=== PATIENT | female | born 1990 | race Hispanic/Latino ===

== ENCOUNTER 2021-03-06 00:32 | Observation (INO) | payer BC, SELFPAY ==
[2021-03-06 03:22] VITALS: BMI 21.5
--- NOTE | 2021-03-06 03:22 | OBADM ---
This patient, Cesilia Morales, admitted to the OB room Labor/Delivery/Recovery 106 for observation. Patient/family oriented to hospital policies and general routines including ID bracelet, bed and alarms, visiting hours, pain management, procedures, bathroom and other care routines, personal items, smoking policy, room service/diet, and visiting hours. Patient/Family are encouraged to report perceived risks to care and to ask questions if they do not understand what they are told or what they should do.
--- NOTE | 2021-03-06 07:43 | PM.OBTRLD ---
OB - Triage/Final Diagnosis Visit Information Reason for evaluation: threatened labor Comments/Additional reasons for admission: I have assessed the risk for this patient, Cesilia Morales, and determined that she would benefit from observation care.
== END 2021-03-06 03:35 | disposition home or self-care (01) ==
PROVIDERS: Admitting Provider Obstetrics & Gynecology; Visit Provider Obstetrics & Gynecology
DX: O47.9 False labor, unspecified (principal); Z3A.00 Weeks of gestation of pregnancy not specified
CPT/HCPCS: G0378; G0379

== ENCOUNTER 2021-03-07 00:30 | Inpatient (IN) | payer BC, SELFPAY ==
[2021-03-07] VITALS (208 sets, daily range): BP systolic 68–132; BP diastolic 30–111; PULSE 58–189; RESP 16; TEMP 36.6–37.7; O2SAT 78–100
[2021-03-07 03:03] LABS: Basophils Percent Auto 0.1 % (0.2-1.2); Eosinophils Percent Auto 0.3 % (0-4.4); Hematocrit 37.1 % (37.0-47.0); Immature Granulocyte Absolute 0.03 K/mm3 (0.00-0.031); Immature Granulocyte Percent A 0.4 % (0-0.5); Lymphocytes Absolute Auto 2.26 K/mm3 (0.9-3.2); Mean Corpuscular HGB Conc 32.3 g/dl (32-36); Mean Corpuscular Hemoglobin 30.1 pg (26-34); Mean Platelet Volume 11.4 fl (7.4-10.4); Monocytes Absolute Auto 0.5 K/mm3 (0.1-0.6); Monocytes Percent Auto 6.8 % (2.6-8.5); Neutrophils Absolute Auto 4.9 K/mm3 (1.3-6.7); Neutrophils Percent Auto 63.4 % (45.5-73.1); Platelet Count Result 187 k/mm3 (150-375); Red Blood Count 3.99 M/mm3 (4.2-5.4); Red Cell Distribution Width 16.6 % (11.5-14.5); White Blood Count 7.8 K/mm3 (4.5-10.0)
[2021-03-07] MEDS: LACTATED RINGERS 1,000 ML 125 ML IV CONT ×3 (03:07→19:53)
[2021-03-07] MEDS: AMPICILLIN 2 GM/NS 100 ML 2 GM/100 ML BAG IVPB (03:07)
--- NOTE | 2021-03-07 04:31 | LDADM ---
This patient, Cesilia Morales, was admitted to Labor/Delivery/Recovery 107 on 03/07/21 at 00:30. Plans for labor, pain management and were discussed with patient. Patient/family oriented to hospital policies and general routines including ID bracelet, bed and alarms, visiting hours, pain management, procedures, bathroom and other care routines, personal items, smoking policy, room service/diet and guest tray routines, infant security routines, and visiting hours. Patient/Family are encouraged to report perceived risks to care and to ask questions if they do not understand what they are told or what they should do. See OBIX for further documentation.
--- NOTE | 2021-03-07 04:34 | P.PNAN_ITS ---
Anes - Eval Pre Procedure Procedure: Labor epidural Date/Time: 03/07/21 04:34 Surgeon: velasquez larson Preop Diagnosis: ABD PAIN WITH CONTRACTIONS Pre Op Diagnosis: Labor Patient Data Age: 31 Gender: F Height: Weight: Last Vital Signs Pulse 78 03/07/21 04:00 BP 104/66 03/07/21 04:00 Allergies Allergy/AdvReac Type Severity Reaction Status Date / Time No Known Allergies Allergy Verified 03/06/21 03:29 Home Medications Medication Instructions Recorded Confirmed Type ferrous sulfate mg 03/06/21 History levothyroxine 03/06/21 History Laboratory Tests 03/07/21 03/07/21 02:56 02:56 WBC 7.8 K/mm3 K/mm3 (4.5-10.0) RBC 3.99 M/mm3 L M/mm3 (4.2-5.4) Hgb 12.0 g/dL g/dL (12.0-15.0) Hct 37.1 % % (37.0-47.0) MCV 93.0 fl fl (80-100) MCH 30.1 pg pg (26-34) MCHC 32.3 g/dl g/dl (32-36) RDW 16.6 % H % (11.5-14.5) Plt Count 187 k/mm3 k/mm3 (150-375) MPV 11.4 fl H fl (7.4-10.4) Immature Gran % (Auto) 0.4 % % (0-0.5) Neut % (Auto) 63.4 % % (45.5-73.1) Lymph % (Auto) 29.0 % % (18.3-44.2) [place] % (Auto) 6.8 % % (2.6-8.5) Eos % (Auto) 0.3 % % (0-4.4) Baso % (Auto) 0.1 % L % (0.2-1.2) Lymph # (Auto) 2.26 K/mm3 K/mm3 (0.9-3.2) [place] # (Auto) 0.5 K/mm3 K/mm3 (0.1-0.6) Eos # (Auto) 0.0 K/mm3 K/mm3 (0-0.3) Baso # (Auto) 0.0 K/mm3 K/mm3 (0.0-0.1) Abs Immat Gran (auto) 0.03 K/mm3 K/mm3 (0.00-0.031) Absolute Neuts (auto) 4.9 K/mm3 K/mm3 (1.3-6.7) Absolute Nucleated RBC 0.0 K/mm3 K/mm3 (0.0-0.012) Nucleated RBC % 0.0 % % (0.0-0.2) RPR Pending Patient hx anesthesia problems: none Family hx anesthesia problems: none PMFSH Past Medical History Medical History Diabetes in Exam Day of Procedure 03/07/21 04:34 Patient weight: normal Airway: Mallampati scale class II Neurological: alert and oriented
--- NOTE | 2021-03-07 05:05 | PM.IMHP ---
H&P: HPI History of Present Illness Date/Time: 03/07/21 05:05 frederic is a 31-year-old 1 para 0 whose last menstrual period was 06/04/2020, EDC is 03/11/2021, presents at 39 weeks gestation in active labor. She is positive for group B strep. She is hypothyroid and controlled on 20/5 micro g of levothyroxine. Early ultrasound confirms dates. She has also been anemic and on iron replacement Chief Complaint: term in active labor with positive group B strep Review of Systems Review of Systems: All systems reviewed & are unremarkable except as noted in HPI and below PMFSH Past Medical History Medical History Diabetes in Meds Home Medications and Allergies Home Medications Medication Instructions Recorded Confirmed Type ferrous sulfate mg 03/06/21 History levothyroxine 03/06/21 History Allergies Allergy/AdvReac Type Severity Reaction Status Date / Time No Known Allergies Allergy Verified 03/06/21 03:29 Vital Signs Vital Signs - 24 hr 03/07/21 03:00 03/07/21 03:15 03/07/21 03:31 Pulse Rate 75 87 67 Blood Pressure 121/77 103/61 112/70 Pulse Oximetry 03/07/21 03:45 03/07/21 04:00 03/07/21 04:43 Pulse Rate 68 78 Blood Pressure 108/76 104/66 Pulse Oximetry 98 03/07/21 04:45 03/07/21 04:48 03/07/21 04:51 Pulse Rate 111 H 118 H 114 H Blood Pressure 126/66 112/75 115/76 Pulse Oximetry 100 03/07/21 04:53 03/07/21 04:54 03/07/21 04:57 Pulse Rate 76 86 Blood Pressure 104/67 119/66 Pulse Oximetry 100 03/07/21 04:59 03/07/21 05:00 03/07/21 05:03 Pulse Rate 75 106 H Blood Pressure 103/66 101/66 Pulse Oximetry 100 100 Exam Const: General: no acute distress Eyes: General: appearance normal, both eyes and all related structures Neck: Neck: supple and no JVD Thyroid: thyroid normal Resp: Effort & Inspection: normal respiratory effort Auscultation: clear to auscultation bilaterally Cardio: Rate: regular rate Rhythm: regular rhythm GI: Inspection: non-distended GI Palp: Yes Soft to palpation, No Tenderness to palpation present (GI) and No Guarding due to palpation present (GI) Auscultation: normal bowel sounds : External Female Exam: normal external appearance Speculum Exam - Vagina: normal appearance of the vagina Speculum Exam - Cervix: Cervical os closed ( cervix 3.5cm by RN exam. Contractions regular. FHTs reassuring) Skin: General skin exam: no rashes or lesions noted Extrem: General: normal to inspection and no edema Psych: Mental Status: mental status grossly normal Affect: normal affect H&P: Results Labs Labs: Short CBC 03/07/21 Range/Units 02:56 WBC 7.8 (4.5-10.0) K/mm3 Hgb 12.0 (12.0-15.0) g/dL Hct 37.1 (37.0-47.0) % Plt Count 187 (150-375) k/mm3 Assessment and Plan Additional Plan impression: Term in active labor Plan: Spontaneous vaginal delivery is expected. She has an epidural candidate
--- NOTE | 2021-03-07 05:12 | WPDOBADMIT ---
Obstetrics - Admit Note Admission Note: record reviewed. No pertinent additions to the history and/or any subsequent changes in the physical findings that are not consistent with the expected course of the were found. Additions to the history and/or subsequent changes in the physical findings follow. None. cx 4/100/-2 arom mec stained fhts ok epidural working
[2021-03-07] MEDS: OXYTOCIN 30 UNITS/NS 500 ML 30 UNITS/500 ML BAG 6 UNITS IV CONT (07:06)
[2021-03-07] MEDS: AMPICILLIN 1 GM/NS 50 ML 1 GM/50 ML BAG IVPB ×3 (07:06→15:29)
--- NOTE | 2021-03-07 11:14 | P.PNOB_ITS ---
OB - PN: Subj Subjective Date/time seen: 03/07/21 11:14 cx 4.5 by rn exam fhts ok/iupc in OB - PN: Obj Data Labs CBC & Chem 7: 03/07/21 02:56 Labs: Laboratory Results - last 24 hr 03/07/21 03/07/21 02:56 02:56 WBC 7.8 RBC 3.99 L Hgb 12.0 Hct 37.1 MCV 93.0 MCH 30.1 MCHC 32.3 RDW 16.6 H Plt Count 187 MPV 11.4 H Immature Gran % (Auto) 0.4 Neut % (Auto) 63.4 Lymph % (Auto) 29.0 [place] % (Auto) 6.8 Eos % (Auto) 0.3 Baso % (Auto) 0.1 L Lymph # (Auto) 2.26 [place] # (Auto) 0.5 Eos # (Auto) 0.0 Baso # (Auto) 0.0 Abs Immat Gran (auto) 0.03 Absolute Neuts (auto) 4.9 Absolute Nucleated RBC 0.0 Nucleated RBC % 0.0 Blood Type A Positive Antibody Screen Negative OB - PN A/P Time Spent With Patient Time: Total time spent is greater than 50% in coordination of care (as documented) at patient's floor/unit and/or counseling patient:
[2021-03-07 12:01] LABS: Rapid Plasma Reagin Non-Reactive (NonReactive)
--- NOTE | 2021-03-07 16:10 | P.PNOB_ITS ---
OB - PN: Subj Subjective Date/time seen: 03/07/21 16:10 cx 6 fhts ok pt sleeping cont pit OB - PN: Obj Data Labs CBC & Chem 7: 03/07/21 02:56 Labs: Laboratory Results - last 24 hr 03/07/21 03/07/21 03/07/21 02:56 02:56 02:56 WBC 7.8 RBC 3.99 L Hgb 12.0 Hct 37.1 MCV 93.0 MCH 30.1 MCHC 32.3 RDW 16.6 H Plt Count 187 MPV 11.4 H Immature Gran % (Auto) 0.4 Neut % (Auto) 63.4 Lymph % (Auto) 29.0 [place] % (Auto) 6.8 Eos % (Auto) 0.3 Baso % (Auto) 0.1 L Lymph # (Auto) 2.26 [place] # (Auto) 0.5 Eos # (Auto) 0.0 Baso # (Auto) 0.0 Abs Immat Gran (auto) 0.03 Absolute Neuts (auto) 4.9 Absolute Nucleated RBC 0.0 Nucleated RBC % 0.0 RPR Non-reactive Blood Type A Positive Antibody Screen Negative OB - PN A/P Time Spent With Patient Time: Total time spent is greater than 50% in coordination of care (as documented) at patient's floor/unit and/or counseling patient:
--- NOTE | 2021-03-07 18:57 | P.PNOB_ITS ---
OB - PN: Subj Subjective Date/time seen: 03/07/21 18:57 cx complete fhts ok OB - PN: Obj Data Labs CBC & Chem 7: 03/07/21 02:56 Labs: Laboratory Results - last 24 hr 03/07/21 03/07/21 03/07/21 02:56 02:56 02:56 WBC 7.8 RBC 3.99 L Hgb 12.0 Hct 37.1 MCV 93.0 MCH 30.1 MCHC 32.3 RDW 16.6 H Plt Count 187 MPV 11.4 H Immature Gran % (Auto) 0.4 Neut % (Auto) 63.4 Lymph % (Auto) 29.0 [place] % (Auto) 6.8 Eos % (Auto) 0.3 Baso % (Auto) 0.1 L Lymph # (Auto) 2.26 [place] # (Auto) 0.5 Eos # (Auto) 0.0 Baso # (Auto) 0.0 Abs Immat Gran (auto) 0.03 Absolute Neuts (auto) 4.9 Absolute Nucleated RBC 0.0 Nucleated RBC % 0.0 RPR Non-reactive Blood Type A Positive Antibody Screen Negative OB - PN A/P Time Spent With Patient Time: Total time spent is greater than 50% in coordination of care (as documented) at patient's floor/unit and/or counseling patient:
[2021-03-07] MEDS: ONDANSETRON INJ 4 MG/2 ML VIAL IV PUSH (19:48)
--- NOTE | 2021-03-07 21:07 | PM.OBPRVD ---
OB - Delivery Note Procedure Delivery date: 03/07/21 Intrapartal events: None Induction method: none Delivery monitor: external FHT Route of delivery: Episiotomy description: None Laceration Description: Perineal - 2nd Degree Delivery repair: vicryl Specimen: No Quantitative Blood Loss (ml): 258 Anesthesia type: Epidural Disposition: floor Baby Date of : 03/07/21 Time of : 20:50 Weeks of gestation at delivery: 39 gender: Male presentation: vertex position: Left Occiput Anterior Placenta delivery description: Spontaneous cord vessel description: 3 Vessels and Nuchal Cord
[2021-03-07] MEDS: OXYTOCIN 30 UNITS/NS 500 ML 30 UNITS/500 ML BAG 125 UNITS IV CONT (21:22)
[2021-03-07] MEDS: ACETAMINOPHEN 325 MG TABLET 650 MG PO (21:58)
--- NOTE | 2021-03-07 22:59 | PC.NURSE ---
All medications passed after 1800 on 03/07/21 passed by Jason Martins RN.
[2021-03-07] MEDS: WITCH HAZEL 40 PADS 1 PAD TOPICAL (23:14)
[2021-03-07] MEDS: BENZOCAINE 20% AER SPR (*SP) 56 GM CAN 1 SPRAY TOPICAL (23:14)
--- NOTE | 2021-03-07 23:44 | OBPPTRN ---
Patient transferred to post room #277 via wheelchair. Oriented to unit, room, information board, rooming in, admission packet and security measures. Patient verbalizes understanding. Call light within reach
[2021-03-08] MEDS: IBUPROFEN 600 MG TABLET PO ×3 (02:48→19:56)
--- NOTE | 2021-03-08 02:53 | PC.NURSE ---
Patient assisted to the bathroom, with standby assistance. She sat on the toliet for about 20 minutes and was unable to void. She states she can feel that it is right there ready to come out but she can not go. Marcia care performed, pain medication given and told her we will try again in about an hour to void.
[2021-03-08 04:20] VITALS: BP 86/52; PULSE 89; RESP 16; TEMP 37.2
--- NOTE | 2021-03-08 04:20 | PC.NURSE ---
Patient up to the bathroom to void, she sat on the toilet for 20 minutes and went about 75cc's. She states she feels like she needs to void more but is unable to at this time. She would like to get in the shower and try to void. She got in the shower and she stated I was able to void a little more than when I was on the toilet . I told her to let me know if she voids anymore, a hat is in the toilet. Bladder does not feel distended, uterus is firm and midline at umbilicus.
[2021-03-08 05:41] LABS: Hematocrit 27.1 % (37.0-47.0); Hemoglobin 8.9 g/dL (12.0-15.0)
--- NOTE | 2021-03-08 07:39 | WPDANLDPN2 ---
Anes-Prog Note L&D Date/Time: 03/08/21 07:39 Comfortable throughout: labor and delivery Neuraxial method: epidural Epidural/Spinal procedure site: clean & non-tender Neuro status: Neuro function grossly intact. Cardiovascular status: normal Respiratory status: normal Airway patency: baseline Mental status: baseline Post-Op hydration status: normal Vital Signs: Last Vital Signs Temp 37.2 C 03/08/21 04:20 Pulse 89 03/08/21 04:20 Resp 16 03/08/21 04:20 BP 86/52 L 03/08/21 04:20 Pulse Ox 100 03/07/21 23:45 Pain score (VAS): 2 I/O: Intake & Output 03/07/21 03/07/21 03/08/21 15:59 23:59 07:59 Intake Total 1100 1500 Output Total 1098 Balance 1100 402 Post-procedural complaints: none Patient feedback: Patient satisfied with anesthetic care.
--- NOTE | 2021-03-08 07:41 | PM.OBPNVD ---
OB - PN: Subj Subjective Date/time seen: 03/08/21 07:41 Patient comments: no complaints and pain well controlled baby status: doing well and nursing well OB - PN: Obj Data Labs CBC & Chem 7: 03/08/21 04:07 Labs: Laboratory Results - last 24 hr 03/07/21 03/08/21 02:56 04:07 Hgb 8.9 L D Hct 27.1 L RPR Non-reactive OB - PN A/P Plan day: 1 Plan: routine care Time Spent With Patient Time: Total time spent is greater than 50% in coordination of care (as documented) at patient's floor/unit and/or counseling patient: Time with patient: less than 15 minutes Review of Systems Review of Systems: All systems reviewed & are unremarkable except as noted in HPI and below Exam Const: General: no acute distress Eyes: General: appearance normal, both eyes and all related structures Neck: Neck: supple and no JVD Thyroid: thyroid normal Resp: Effort & Inspection: normal respiratory effort Auscultation: clear to auscultation bilaterally Cardio: Rate: regular rate Rhythm: regular rhythm GI: Inspection: non-distended GI Palp: Yes Soft to palpation, No Tenderness to palpation present (GI) and No Guarding due to palpation present (GI) Auscultation: normal bowel sounds : General: Yes bladder normal to palpation External Female Exam: normal external appearance Speculum Exam - Vagina: normal vaginal discharge and No vaginal bleeding Speculum Exam - Cervix: nontender Bimanual exam- vagina & uterus: bladder normal to palpation and No Cervical tenderness present OB/external & speculum: No vaginal bleeding Skin: General skin exam: no rashes or lesions noted Extrem: General: normal to inspection and no edema Psych: Mental Status: mental status grossly normal Affect: normal affect
[2021-03-08 08:05] VITALS: BP 101/60; PULSE 89; RESP 18; TEMP 36.7; O2SAT 100
[2021-03-08] MEDS: DOCUSATE SODIUM 100 MG CAPSULE PO (11:19)
[2021-03-08 11:59] VITALS: BP 97/63; PULSE 81; RESP 17; TEMP 36.8; O2SAT 96
[2021-03-08 16:40] VITALS: BP 86/48; PULSE 84; RESP 12; TEMP 36.2; O2SAT 100
[2021-03-08 19:36] VITALS: BP 95/60; PULSE 95; RESP 14; TEMP 36.8; O2SAT 99
[2021-03-08] MEDS: ACETAMINOPHEN 325 MG TABLET 650 MG PO (19:55)
[2021-03-09] MEDS: IBUPROFEN 600 MG TABLET PO ×2 (05:48→14:10)
[2021-03-09] MEDS: ACETAMINOPHEN 325 MG TABLET 650 MG PO (05:48)
--- NOTE | 2021-03-09 06:49 | PM.OBPNVD ---
OB - PN: Subj Subjective Date/time seen: 03/09/21 06:49 Patient comments: no complaints and pain well controlled baby status: doing well and nursing well OB - PN: Obj Data Labs CBC & Chem 7: 03/08/21 04:07 OB - PN A/P Plan day: 2 Plan: routine care, discharge home and follow up 6 weeks Time Spent With Patient Time: Total time spent is greater than 50% in coordination of care (as documented) at patient's floor/unit and/or counseling patient: Time with patient: less than 15 minutes Review of Systems Review of Systems: All systems reviewed & are unremarkable except as noted in HPI and below Exam Const: General: no acute distress Eyes: General: appearance normal, both eyes and all related structures Neck: Neck: supple and no JVD Thyroid: thyroid normal Resp: Effort & Inspection: normal respiratory effort Auscultation: clear to auscultation bilaterally Cardio: Rate: regular rate Rhythm: regular rhythm GI: Inspection: non-distended GI Palp: Yes Soft to palpation, No Tenderness to palpation present (GI) and No Guarding due to palpation present (GI) Auscultation: normal bowel sounds : General: Yes bladder normal to palpation External Female Exam: normal external appearance Speculum Exam - Vagina: normal vaginal discharge and No vaginal bleeding Speculum Exam - Cervix: nontender Bimanual exam- vagina & uterus: bladder normal to palpation and No Cervical tenderness present OB/external & speculum: No vaginal bleeding Skin: General skin exam: no rashes or lesions noted Extrem: General: normal to inspection and no edema Psych: Mental Status: mental status grossly normal Affect: normal affect
--- NOTE | 2021-03-09 06:50 | P.DS_ITS ---
DS: Admitting Diagnosis Admitting Diagnosis Admitting Diagnosis: term iup DS: Summary Hospital Course Hospital Course: underwent . unremarkable course Time Spent with Patient Time attestation: Total time spent providing and/or coordinating discharge services: Exam Const: General: no acute distress Eyes: General: appearance normal, both eyes and all related structures Neck: Neck: supple and no JVD Thyroid: thyroid normal Resp: Effort & Inspection: normal respiratory effort Auscultation: clear to auscultation bilaterally Cardio: Rate: regular rate Rhythm: regular rhythm GI: Inspection: non-distended GI Palp: Yes Soft to palpation, No Tenderness to palpation present (GI) and No Guarding due to palpation present (GI) Auscultation: normal bowel sounds : General: Yes bladder normal to palpation External Female Exam: normal external appearance Speculum Exam - Vagina: normal vaginal discharge and No vaginal bleeding Speculum Exam - Cervix: nontender Bimanual exam- vagina & uterus: bladder normal to palpation and No Cervical tenderness present OB/external & speculum: No vaginal bleeding Skin: General skin exam: no rashes or lesions noted Extrem: General: normal to inspection and no edema Psych: Mental Status: mental status grossly normal Affect: normal affect Discharge Plan Discharge Attending physician on discharge: Alfonso Mccormack Discharging Clinician: Alfonso Mccormack Patient Disposition: Home, Self-Care Activity: may shower, no straining and pelvic rest Diet: heart healthy Wound Care Instructions: follow printed instructions Patient Instructions: Antibiotic Form Stand Alone Forms: General Discharge Information Follow-up/Referrals: Alfonso Mccormack MD [Physician] - Discharge Medications: No Action levothyroxine 25 mcg tablet RF: 0 ferrous sulfate 325 mg (65 mg iron) tablet RF: 0 Date of admission: 03/07/21 00:30 Primary Care Provider: PHYSICIAN,HEALTH PLAN ADVISOR Admitting Provider: Alfonso Mccormack Attending physician on admission: Alfonso Mccormack Condition: Stable
[2021-03-09 07:45] VITALS: BP 94/77; PULSE 101; RESP 16; TEMP 37; O2SAT 100
--- NOTE | 2021-03-09 09:50 | PC.NURSE ---
Consulted with patient, mother reports infant is sleepy at breast. Mother will put to breast for most feedings and will then supplement. Mother has not been pumping after feedings. Discussed the importance of regular stimulation if is not nursing effectively. Mother states she will initiate pumping once at home. Reviewed feeding cues, frequencies, duration of feedings, feeding elimination flow sheet, and signs of adequate intake. Demonstrated stimulation techniques to wake for feeding. Assisted with to breast. Reviewed positioning/alignment in cross cradle, holding breast in U hold and guided asymmetrical latch on. Infant was able to latch correctly. Infant nursed eagerly, with steady draws for short bursts with occasional swallowing noted. would fall asleep and release latch. Mother reports she will wake and attempt a few times then bottle feed. Reviewed signs of a correct latch, effective nursing and suck swallow ratio. Advised to stimulate infant while feeding to keep infant awake and nursing effectively for increased stimulation and increased intake. Advised to continue to supplement until mother's milk is well established and is able to maintain latch with effective nursing. tongue appears to have slightly tight frenulum. This does not appear to effect latch. Mother voiced understanding of information shared. Mother plans on discharge today. Mother is able to independently latch with appropriate positioning/alignment. She is feeding as required and waking infant to feed if needed. Infant is currently meeting outcomes for weight, output, jaundice and feeding frequencies. Mother states she feels confident to continue current feeding plan at home. Reviewed transition to breast milk, signs of adequate intake, and engorgement/relief. Instructed to call ICP if intake/output less than required. Reviewed regular medications mother is taking. Information provided per [place]. Reviewed community resources on the [facility] website and in the Mom/Baby guide. Information on outpatient services provided. Mother has no further questions at this time.
--- NOTE | 2021-03-09 12:45 | PC.NURSE ---
Reviewed all information with pt.'s as she requested. Both voiced understanding to all.
--- NOTE | 2021-03-09 13:00 | PC.NURSE ---
Patient instructed on viewing the [place] discharge video Mother & Baby Care, The First Two Weeks online. Patient was given the opportunity and encouraged to ask questions. Patient verbalized understanding of information shared and has been given the mother/baby guide for home reference.
--- NOTE | 2021-03-09 13:15 | PC.NURSE ---
Discharge packet for mother and baby thoroughly reviewed with mother and father of baby. Offered language line but patient declined. Patient given the opportunity to ask questions and father was present to listen and ask questions as well. They verbalized understanding of the information given and they stated that they had no further questions.
[2021-03-09] MEDS: TETANUS,DIPHTHERIA,AC PERTUSSIS ADULT (0.5 ML) BOOSTRIX IM (14:11)
[2021-03-12 11:52] VITALS: BP 116/73; PULSE 78; RESP 20; TEMP 37.3; O2SAT 100
== END 2021-03-09 14:50 | disposition home or self-care (01) | DRG 807 ==
LOC: ANHLDR 20:54 → ANHOB2 03-08 01:04
PROVIDERS: Admitting Provider Obstetrics & Gynecology; Visit Provider Obstetrics & Gynecology
DX: O99.824 Streptococcus B carrier state complicating childbirth (principal); Z37.0 Single live birth; Z3A.39 39 weeks gestation of pregnancy; O36.8330 Maternal care for abnormalities of the fetal heart rate or rhythm, third trimester, not applicable or unspecified; O77.0 Labor and delivery complicated by meconium in amniotic fluid; O69.81X0 Labor and delivery complicated by cord around neck, without compression, not applicable or unspecified; O99.284 Endocrine, nutritional and metabolic diseases complicating childbirth; E03.9 Hypothyroidism, unspecified; O99.02 Anemia complicating childbirth; D64.9 Anemia, unspecified; O70.1 Second degree perineal laceration during delivery
CPT/HCPCS: 36415; 85014; 85018; 85025; 86592; 86850; 86900; 86901; 90715; A9270; J0290; J2405; J2590; J2795; J7120

== ENCOUNTER 2024-05-27 13:46 | Outpatient (CLI) | payer BC, SELFPAY ==
--- NOTE | ~2024-05-27 | US_ITS ---
EXAMINATION: US thyroid DATE: 05/27/2024 14:22 INDICATION: Hypothyroidism. TECHNIQUE: Multiple ultrasound images of the thyroid were obtained. COMPARISON: None. FINDINGS: The right thyroid lobe measures 5.0 x 0.7 x 1.3 cm. The left thyroid lobe measures 4.6 x 1.1 x 1.4 c m. In the left thyroid lobe, there is a 17 mm mixed cystic and solid, isoechoic, wider than tall nod ule with ill-defined margin without echogenic foci (TI-RADS TR2). IMPRESSION: 1. Left thyroid nodule, likely not clinically significant. No follow-up is needed. Reviewed, dictated and finalized at location A. IMPRESSION: 1. Left thyroid nodule, likely not clinically significant. No follow-up is need ed.
== END 2024-05-27 13:47 ==
PROVIDERS: PCP Emergency Medicine; Visit Provider Emergency Medicine
DX: E03.9 Hypothyroidism, unspecified (principal)
CPT/HCPCS: 76536

== ENCOUNTER 2025-09-16 11:19 | Outpatient (CLI) | payer OTHER, SELFPAY ==
--- OUTSIDE RECORDS SUMMARY | 2025-09-16 12:07 | XMS_ITS | Clinical Summary ---
Author Organization [facility] Address [address], [facility] [address] [place] [address] Phone Care Team Providers Care Fine Sander Name Role Phone Nelson Finn Primary Care Provider Gonzalez Chen DO Unavailable [phone] Allergies No known active allergies Medications Synthroid 25 MCG Tablet Take 1 Tablet by mouth daily. 4 Active Paresh Fe 12/20 1-20 MG-MCG Tablet Take 1 Tablet by mouth daily. 4 Active ferrous sulfate 325 (65 Fe) MG TabletIndicatio ns:Iron Deficiency Anemia Take 1 Tablet by mouth every other day. 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 from Last 3 Months Social History Tobacco Use Types Packs/Day Years Used Date Smoking Tobacco: Never Smokeless Tobacco: Never Tobacco Cessation:Counseling Given: Not Answered Alcohol Use Standard Drinks/Week Comments Yes 0 (1 standard drink = 0.6 oz pur e alcohol) very rarely Comments Unknown Sex and Gender Information Value Date Recorded Sex Assigned at Not on file Legal Sex Female 12:10 PM CDT Gender Identity Not on file Sexual Orientation Not on file Last Filed Vital Signs Vital Sign Reading Time Taken Comments Blood Pressure 108/62 05/30/2025 10:43 AM CDT Pulse 69 05/30/2025 10:43 AM CDT Temperature 37 C (98.6 F) 05/30/2025 10:43 AM CDT Respiratory Rate 16 05/30/2025 10:43 AM CDT Oxygen Saturation 97% 05/30/2025 10:43 AM CDT Inhaled Oxygen Concentration - - Weight 41.5 kg (91 lb 6.4 oz) 05/30/2025 10:43 A M CDT Height 154.9 cm (5' 1) 05/30/2025 10:43 AM CDT Body Mass Index 17.27 05/30/2025 10:43 AM CDT Plan of Treatment Upcoming Encounters Date Type Department Care Team (Late st Contact Info) Description 11/28/2025 10:30 AM AQUATICS SPECIALIST Lab [facility] [address] [phone] Lab, [facility] 11/28/2025 10:45 AM AQUATICS SPECIALIST Office Visit [facility] [address] [phone] Gonzalez Chen, DO [address] [place] [phone] Health Maintenance Due Date Last Done Comments Hepatitis C Virus (HCV) Screening 1989 Hepatitis B Immunization (1 of 3 - 19+ 3-dose series) 2008 Pap Smear 2010 Human Papillomavirus (HPV) Immunization (1 - 3-dose SCDM series) 2016 Cervical Cancer Screening (CCS) 2019 HPV/Cotest 2019 Influenza Immunization (#1) 2025 SARS-COV-2 Immunization ( - season) 2025 06/25/2021, 05/28/2021 Respiratory Syncytial Virus (RSV) Immunization (Adult) (1 - 1-dose 75+ series) 2064 TdaP Immunization Completed 03/09/2021 Meningococcal Immunization (ACWY) Aged Out No longer eligible b ased on patient's age to complete this topic Pneumococcal Immunization Combined Aged Out No longer eligible b ased on patient's age to complete this topic Rotavirus Immunization Aged Out No lo nger eligible based on patient's age to complete this topic Insurance [employer] Care Teams Fine Sander Relationship Specialty Start Date End Date Finn Nelson [address] [place] [address] PCP - General Family Medicine 06/18/24 Gonzalez Chen DO [address] [place] [id number] Consulting Physician Oncology 06/18/24
[2025-09-17 06:08] LABS: HSV 1 IgG, Type Spec Reactive (Non Reactive); HSV 2 IgG, Type Spec Reactive (Non Reactive)
== END 2025-09-16 11:20 | disposition home or self-care (01) ==
PROVIDERS: PCP Emergency Medicine; Visit Provider Student in an Organized Health Care Education/Training Program
DX: Z20.2 Contact with and (suspected) exposure to infections with a predominantly sexual mode of transmission (principal)
CPT/HCPCS: 86695; 86696